=== PATIENT | female | born 1970 | race Caucasian/White ===

== ENCOUNTER 2016-11-04 06:48 | Emergency (ER) | payer SELFPAY ==
[2016-11-04 06:55] VITALS: TEMP 98.3
--- NOTE | 2016-11-04 07:18 | ED ---
General Adult HPI - General Chief complaint: Urogenital Stated complaint: Vaginal itching Time Seen by Provider: 11/04/16 07:10 Source: patient, RN notes reviewed Mode of arrival: ambulatory Limitations: no limitations - History of Present Illness Initial comments: Patient is a pleasant 46-year-old female presenting to the emergency department with concerns for vaginal itching. Symptoms have been present for over a week. Patient has seen her doctor and was prescribed Diflucan. Patient took 3 pills without any improvement of symptoms. Patient feels it is unlikely she could have an STD however states it is not impossible. Patient denies vaginal discharge. Patient occasionally will have some lower pelvic discomfort, none at this time. No fever. No dysuria. - Related Data Home Medications Medication Instructions Recorded Confirmed Lisinopril [Prinivil] 10 mg PO DAILY 01/06/16 11/04/16 metFORMIN HCL [Glucophage] 500 mg PO DAILY 01/06/16 11/04/16 Esomeprazole Magnesium [NexIUM] 40 mg PO DAILY 08/09/16 11/04/16 Hair/Skin/Nails 1 tab PO DAILY 08/09/16 11/04/16 L.acidoph,Paracasei, B.lactis 1 cap PO DAILY 08/09/16 11/04/16 [Probiotic] Multivitamins, Thera [Multivitamin] 1 tab PO DAILY 08/09/16 11/04/16 Previous Rx's Medication Instructions Recorded metroNIDAZOLE [Flagyl] 500 mg PO BID #14 tab 11/04/16 Allergies Allergy/AdvReac Type Severity Reaction Status Date / Time ibuprofen Allergy Unknown Verified 11/04/16 06:55 aspirin AdvReac BLOODY Verified 11/04/16 06:55 STOOL Review of Systems ROS Statement: Those systems with pertinent positive or pertinent negative responses have been documented in the HPI. ROS Other: All systems not noted in ROS Statement are negative. Constitutional: Denies: fever Eyes: Denies: eye pain ENT: Denies: ear pain Respiratory: Denies: cough Cardiovascular: Denies: chest pain Endocrine: Denies: fatigue Gastrointestinal: Reports: abdominal pain (Occasional) Genitourinary: Denies: urgency, dysuria, frequency, hematuria, discharge Musculoskeletal: Denies: back pain Skin: Denies: rash Neurological: Denies: weakness Past Medical History Past Medical History: Diabetes Mellitus, GERD/Reflux, Hypertension History of Any Multi-Drug Resistant Organisms: None Reported Past Surgical History: Hysterectomy, Tonsillectomy Past Psychological History: No Psychological Hx Reported Smoking Status: Never smoker Past Alcohol Use History: Rare Past Drug Use History: None Reported General Exam Limitations: no limitations General appearance: alert, in no apparent distress Head exam: Present: atraumatic Eye exam: Present: normal appearance, PERRL ENT exam: Present: normal oropharynx Neck exam: Present: normal inspection Respiratory exam: Present: normal lung sounds bilaterally Cardiovascular Exam: Present: regular rate, normal rhythm GI/Abdominal exam: Present: soft, normal bowel sounds. Absent: distended, tenderness, guarding, rebound, rigid, pulsatile mass External exam: Present: normal external exam (NERI Zuñiga is present). Absent: lesions Speculum exam: Present: normal speculum exam. Absent: vaginal discharge By manual exam: Present: normal by manual exam Neurological exam: Present: alert Psychiatric exam: Present: normal affect, normal mood Skin exam: Absent: rash Course Vital Signs 11/04/16 06:53 Temperature 98.3 F Pulse Rate 81 Respiratory 20 Rate Blood Pressure 136/69 O2 Sat by Pulse 97 Oximetry Medical Decision Making - Lab Data Lab Results 11/04/16 11/04/16 11/04/16 Range/Units 07:45 07:45 07:45 Urine Color Yellow Urine Appearance Turbid H (Clear) Urine pH 6.0 (5.0-8.0) Ur Specific [place] 1.020 (1.001-1.035) Urine Protein Trace H (Negative) Urine Glucose (UA) Negative (Negative) Urine Ketones Negative (Negative) Urine Blood Negative (Negative) Urine Nitrite Negative (Negative) Urine Bilirubin Negative (Negative) Urine Urobilinogen <2.0 (<2.0) mg/dL Ur Leukocyte Esterase Large H (Negative) Urine RBC 6 H (0-5) /hpf Urine WBC 8 H (0-5) /hpf Ur Squamous Epith Cells 62 H (0-4) /hpf Urine Bacteria Many H (None) /hpf Urine Mucus Few H (None) /hpf Urine HCG, Qual Not Detected (Not Detectd) Trichomonas Ag (Rapid) Negative (Negative) Disposition Clinical Impression: Vaginosis Disposition: HOME SELF-CARE Condition: Stable Instructions: Bacterial Vaginosis (ED) Additional Instructions: Please follow-up with primary care physician this week for results. Return for abdominal pain, fevers, worsening symptoms or other concerns. If symptoms continue consider [employer] follow-up. Prescriptions: metroNIDAZOLE [Flagyl] 500 mg PO BID #14 tab Referrals: Laura Guadarrama MD [Primary Care Provider] - 1-2 days Susy Lima MD [STAFF PHYSICIAN] - 1-2 days
[2016-11-04 08:11] LABS: Appearance,Urine Turbid (Clear); Bacteria,Urine Many /hpf; Bilirubin,Urine Negative (Negative); Glucose,Urine (UA) Negative (Negative); Ketones,Urine Negative (Negative); Leukocyte Esterase,Urine Large (Negative); Mucus,Urine Few /hpf; Nitrite,Urine Negative (Negative); Particle Count 39787; Protein,Urine Trace (Negative); RBC,Urine 6 /hpf (0-5); Squamous Epithelial Cell,Urine 62 /hpf (0-4); UA Billing (MACRO vs. MICRO) MICRO; Urobilinogen,Urine <2.0 mg/dL (<2.0); WBC,Urine 8 /hpf (0-5)
[2016-11-04 09:05] VITALS: BP 148/86; PULSE 72; RESP 18
[2016-11-05 11:39] LABS: Chlamydia/GC Source Vaginal
== END 2016-11-04 09:04 | disposition home or self-care (01) ==
LOC: EC 06:48
DX: N76.0 Acute vaginitis (principal); E11.9 Type 2 diabetes mellitus without complications; K21.9 Gastro-esophageal reflux disease without esophagitis; I10 Essential (primary) hypertension; Z79.899 Other long term (current) drug therapy; Z79.84 Long term (current) use of oral hypoglycemic drugs; Z88.6 Allergy status to analgesic agent
CPT/HCPCS: 81001; 81025; 87070; 87086; 87205; 87491; 87591; 87808; 99283